=== PATIENT | female | born 1960 | race Caucasian/White ===

== ENCOUNTER 2024-11-03 12:05 | Emergency (ER) | payer BC ==
[~2024-11-03] VITALS: Ht 165.1 cm; Wt 63.5 kg
[2024-11-03] MEDS: KETOROLAC TROMETHAMINE 30 MG/ML VIAL IM STA (12:55)
[2024-11-03] MEDS: TRAMADOL HCL 50 MG TAB PO ONE (12:55)
[2024-11-03] MEDS ORDERED: SODIUM CHLORIDE 0.9% 1000ML 1,000 ML ONE (13:03)
[2024-11-03] MEDS ORDERED: PROPOFOL IV EMULSION 10 MG/ML 20 ML VIAL ONE (13:03)
[2024-11-03] MEDS ORDERED: NAPROXEN250 MG PO (13:15)
[2024-11-03] MEDS ORDERED: HYDROCODON-ACE1 EA11 PO (13:15)
[2024-11-03] MEDS ORDERED: KETAMINE HCL INJ 50 MG/ML 10 ML VIAL ONE (13:17)
[2024-11-03] MEDS ORDERED: ONDANSETRON HCL INJ 2MG/ML 2ML 2 MG/ML VIAL ONE (13:18)
[2024-11-03] MEDS: PROPOFOL IV EMULSION 10 MG/ML 20 ML VIAL IV ONE (14:07)
[2024-11-03 14:12] VITALS: BP 164/104; PULSE 70; RESP 22; TEMP 98
[2024-11-03 15:15] VITALS: PULSE 65; RESP 15; TEMP 98.2; O2SAT 94
== END 2024-11-03 15:29 | disposition home or self-care (01) ==
LOC: ER 12:25
DX: S53.124A Posterior dislocation of right ulnohumeral joint, initial encounter (principal); W01.0XXA Fall on same level from slipping, tripping and stumbling without subsequent striking against object, initial encounter; Y93.01 Activity, walking, marching and hiking; Y99.0 Civilian activity done for income or pay; F17.210 Nicotine dependence, cigarettes, uncomplicated
CPT/HCPCS: 24605; 73070; 73080; 73110; 99284; J1885; J2704; J7030; J2405

== ENCOUNTER 2024-11-09 11:42 | Emergency (ER) | payer BC, OTHER ==
[~2024-11-09] VITALS: Ht 165.1 cm; Wt 62.6 kg
[~2024-11-09 11:42] MED LIST: HYDROCODON-ACE1 EA11 PO; NAPROXEN250 MG PO
[2024-11-09 11:49] VITALS: PULSE 76; RESP 16; TEMP 98.7; O2SAT 98
== END 2024-11-09 12:20 | disposition home or self-care (01) ==
LOC: ER 12:09
DX: Z47.89 Encounter for other orthopedic aftercare (principal)
CPT/HCPCS: 99282